=== PATIENT | male | born 1960 | race African-American/Black ===

== ENCOUNTER 2020-05-23 11:45 | Emergency (ER) | payer MEDICAID, OTHER ==
[~2020-05-23 11:45] MED LIST: Atropine Sulfate 1 mg/10 ml Syringe ONE; EPINEPHrine 1 MG/10 ML Abboject SYRINGE ONE; Sodium Bicarb 50 MEQ/50 ML Abboject 8.4% SYRINGE ONE
[2020-05-23] MEDS ORDERED: Insulin Regular 300 UNITS/3 ML VIAL ONE (11:49)
[2020-05-23] MEDS ORDERED: Calcium Gluc 4.6 MEQ/10 ML (100 MG/ML) ONE (11:51)
[2020-05-23 12:13] LABS: Hemoglobin 8.4 g/dL (14.0-18.0); Mean Corpuscular HGB CONC 32.6 g/dL (32.0-36.0); Mean Corpuscular Hemoglobin 27.9 pg (27.0-31.0); Mean Corpuscular Volume 85.7 fL (78.0-98.0); Mean Platelet Volume 9.1 fL (7.4-10.4); Platelet Count 226 thou/uL (130-400); RBC Distribution Width 14.4 % (11.5-14.5); Red Blood Cell (RBC) Count 2.99 mill/uL (4.70-6.10); White Blood Cell (WBC) Count 12.1 thou/uL (4.8-10.8)
[2020-05-23 12:19] LABS: Analyzer IN Cardio ER; Base Excess 17.4 mEq/L (-2.0 to +3.0); Calcium, Ionized (venous) 0.94 mmol/L (1.16-1.32); Chloride (VBG) 93 mmol/L (98-106); Hemoglobin (Hb) 9.1 g/dL (13.1-17.2); Potassium (VBG) 4.88 mmol/L (3.70-5.30); Sodium 155.1 mmol/L (133-146); pH (venous) 7.41 (7.32-7.43)
[2020-05-23 12:20] LABS: Actual Bicarbonate (HCO3v) 45 mEq/L (22-28)
[2020-05-23 12:37] LABS: BUN (Urea Nitrogen) 11 mg/dL (8.4-25.7); Calc. Creatinine Clearance 0 mL/min (70-130)
[2020-05-23 12:38] LABS: ALT (SGPT) 471 U/L (8-55); AST (SGOT) 620 U/L (5-34); Albumin 1.8 g/dL (3.5-5.0); Alkaline Phosphatase 117 U/L (40-110); Bilirubin, Total 0.2 mg/dL (0.2-1.2); CK (CPK) 1513 U/L (30-200); Calcium 8.2 mg/dL (7.8-10.44); Globulin 2.2 g/dL (2.4-3.5)
[2020-05-23 12:42] LABS: #Basophils 0.1 thou/uL (0.0-0.2); #Eosinphils 0.2 thou/uL (0.0-0.7); #Lymphocytes 2.9 thou/uL (1.20-3.40); %Basophils 0.6 % (0.0-1.0); %Eosinophils 1.7 % (0.0-10.0); %Lymphocytes 23.7 % (21.0-51.0); %Monocytes 7.8 % (0.0-10.0); %Neutrophils 66.2 % (42.0-75.0); Large Platelets SLIGHT; MDiff Complete? YES; RBC Morphology Normal
[2020-05-23 12:47] LABS: Anion Gap 41 mmol/L (10-20); Carbon Dioxide 35 mmol/L (22-29); Chloride 89 mmol/L (98-107); Potassium 5.1 mmol/L (3.5-5.1); Sodium 160 mmol/L (136-145)
[2020-05-23 12:59] LABS: Glucose 843 mg/dL (70-105)
[2020-05-23 13:20] LABS: CKMB 142.8 ng/mL (0-6.6)
== END 2020-05-23 12:15 ==
LOC: EDBD 11:45 → ERS 11:45
DX: I46.9 Cardiac arrest, cause unspecified (principal); E11.9 Type 2 diabetes mellitus without complications
CPT/HCPCS: 71045; 80053; 82550; 82553; 82805; 83605; 84484; 85025; 92950; 93005; 96374; 96375; J0171; J0461; J1815; J2001